=== PATIENT | female | born 1990 | race African-American/Black ===

== ENCOUNTER 2017-04-02 12:54 | Emergency (ER) | payer MEDICAID, OTHER ==
[~2017-04-02] VITALS: Ht 157.5 cm; Wt 68.0 kg
[2017-04-02] MEDS ORDERED: ONDANSETRON HCL 4MG/2ML VIAL IV STA (15:16)
[2017-04-02] MEDS ORDERED: SODIUM CHLORIDE 0.9% 1,000 ML IV ONE (15:16)
[2017-04-02 15:37] LABS: BASOPHILS % 0.9 % (0.0-2.0); EOSINOPHILS % 0.7 % (0.0-5.0); HEMATOCRIT. 32.7 % (36.0-48.0); HEMOGLOBIN. 10.5 g/dL (12.0-16.0); MEAN CORPUSCULAR HEMOGLOBIN 22.6 pg (28.0-32.0); MEAN CORPUSCULAR VOLUME 70.8 fL (81.0-99.0); MEAN PLATELET VOLUME 7.5 fl (7.4-10.4); MONOCYTES % 10.6 % (2.0-8.0); NEUTROPHILS % 53.8 % (40.0-76.0); PLATELET 289 x1000/uL (130-400); RED BLOOD CELL COUNT 4.62 mill/uL (4.2-5.4); RED CELL DISTRIBUTION WIDTH 16.8 % (11.6-14.6)
[2017-04-02 15:39] LABS: CARBON DIOXIDE 24 mEq/L (21-32); CHLORIDE 102 mEq/L (98-107)
[2017-04-02 16:24] LABS: GLUCOSE URINE NEGATIVE (NEGATIVE); KETONES URINE 3+ (NEGATIVE); LEUKOCYTE ESTERASE URINE 3+ (NEGATIVE); NITRITE URINE NEGATIVE (NEGATIVE); OCCULT BLOOD URINE NEGATIVE (NEGATIVE); PROTEIN URINE 1+ (NEGATIVE); SPECIFIC GRAVITY URINE 1.029 (1.005-1.030)
[2017-04-02 16:27] LABS: CLARITY URINE HAZY (CLEAR); COLOR URINE YELLOW (YELLOW)
[2017-04-02 17:30] VITALS: BP 107/64
== END 2017-04-02 17:35 | disposition home or self-care (01) ==
LOC: ER 14:09
DX: O23.41 Unspecified infection of urinary tract in pregnancy, first trimester (principal); Z3A.08 8 weeks gestation of pregnancy
CPT/HCPCS: 36415; 80053; 81001; 85025; 96361; 96374; 99285; J2405; J7030; Z7610

== ENCOUNTER 2017-04-09 20:02 | Emergency (ER) | payer OTHER ==
[~2017-04-09] VITALS: Ht 157.5 cm; Wt 67.0 kg
[2017-04-09 20:11] VITALS: BP 113/77
== END 2017-04-09 23:49 | disposition left against medical advice (07) ==
LOC: ER 20:03
DX: O21.9 Vomiting of pregnancy, unspecified (principal); Z3A.09 9 weeks gestation of pregnancy; Z53.21 Procedure and treatment not carried out due to patient leaving prior to being seen by health care provider

== ENCOUNTER 2017-10-12 20:19 | Observation (INO) | payer MEDICAID, OTHER ==
[~2017-10-12] VITALS: Ht 157.5 cm; Wt 77.6 kg
[2017-10-12] MEDS ORDERED: PNV1TABL76 MT (20:53)
[2017-10-12] MEDS ORDERED: LACTATED RINGERS 1,000 ML IV SCH (21:00)
[2017-10-12] MEDS ORDERED: TERBUTALINE SULFATE 1MG/ML VIAL SUBCUT PRN (21:00)
[2017-10-12 21:26] LABS: CLARITY URINE CLEAR (CLEAR); COLOR URINE YELLOW (YELLOW); KETONES URINE NEGATIVE (NEGATIVE); LEUKOCYTE ESTERASE URINE 3+ (NEGATIVE); NITRITE URINE NEGATIVE (NEGATIVE); OCCULT BLOOD URINE NEGATIVE (NEGATIVE); PH URINE 6.5 (4.5-8.0); PROTEIN URINE NEGATIVE (NEGATIVE); SPECIFIC GRAVITY URINE 1.007 (1.005-1.030)
[2017-10-12] MEDS ORDERED: CEFAZOLIN 2,000 MG in DEXT 5% WATER 100 ML IV NR (22:00)
== END 2017-10-13 00:40 | disposition home or self-care (01) ==
LOC: L&D 20:19
PROVIDERS: ADMIT Obstetrics & Gynecology; ATTEND Obstetrics & Gynecology
DX: O62.9 Abnormality of forces of labor, unspecified (principal); Z3A.36 36 weeks gestation of pregnancy
CPT/HCPCS: 81003; 96365; 96372; G0378; J0690; J3105; J7120; 59412; 96360; 99281; J7060

== ENCOUNTER 2018-08-15 15:42 | Emergency (ER) | payer MEDICAID, OTHER ==
[~2018-08-15] VITALS: Ht 177.8 cm; Wt 83.0 kg
[~2018-08-15 15:42] MED LIST: PNV1TABL76 MT
[2018-08-15 15:54] VITALS: BP 135/89
== END 2018-08-15 20:00 | disposition left against medical advice (07) ==
LOC: ER 15:42
DX: Z53.21 Procedure and treatment not carried out due to patient leaving prior to being seen by health care provider (principal)